=== PATIENT | male | born 1995 | race Caucasian/White ===

== ENCOUNTER 2021-03-30 19:30 | Emergency (ER) | payer MEDICAID, SELFPAY ==
[2021-03-30 19:31] VITALS: BP 106/56; PULSE 53; RESP 15; TEMP 37.2; O2SAT 98; BMI 20.2
--- NOTE | 2021-03-30 19:50 | EX.ED.DYSGE1 ---
HPI History of Present Illness Chief Complaint: Itching Informant: patient and spouse/S.O. Narrative Narrative: 26-year-old male presents the emergency room with left hand swelling. Patient states he was stung by a insect on his distal middle finger. States he was attempted to turn this packet on and believes the insect was up underneath the siding. He states shortly thereafter his hand has swelled. He took 2 Benadryl and used some calamine lotion. He denies any systemic symptoms PFSH PFSH no medical history Home Medications No Known/Unobtainable [No Known Home Medications] 01/10/15 [History Last Taken Unknown] Allergy/AdvReac Type Severity Reaction Status Date / Time No Known Allergies Allergy Verified 03/30/21 19:35 no surgical history Social History (Updated 03/30/21 @ 19:[address] Jonathan Snell, DO) Smoking Status: Current every day smoker substance use type: does not use ROS ROS ED Constitutional Constitutional ED: Denies chills or weight loss Eyes Eyes: Denies change in vision or diplopia ENT ENT ED: Denies ear pain, rhinorrhea or sore throat Cardiovascular Cardiovascular: Denies chest pain, orthopnea, palpitations or racing heartbeat Respiratory/Chest Respiratory/Chest: Denies cough, dyspnea or orthopnea Gastrointestinal Gastrointestinal: Denies abdominal pain, diarrhea, nausea or vomiting Genitourinary Genitourinary ED: Denies dysuria, hematuria or urinary frequency Musculoskeletal Musculoskeletal: Denies arthralgias or myalgias Integumentary Reports other Details: See history of present illness ; Denies abscess or rash Neurologic Neurologic: Denies headache(s) or weakness Psychiatric Psychiatric: Denies anxiety, depression, suicidal ideation or suicidal thoughts Endocrine Endocrinology: Denies polydipsia, polyphagia or polyuria Allergic/Immunologic Allergic/Immunologic ED: Denies mouth swelling, tongue swelling or urticaria EXAM Physical Exam Const Vital Signs: 03/30/21 19:31 Temperature 98.9 F Temperature Source Temporal Pulse Rate 53 L Respiratory Rate 15 Blood Pressure 106/56 L Blood Pressure Mean 72 Pulse Ox 98 Oxygen Delivery Method Room Air Positive well nourished and well developed General Appearance ED: well developed HEENT Reports normocephalic, head/scalp atraumatic and moist mucous membranes Eyes PERRL and EOMs intact bilaterally Neck no lymphadenopathy, supple and no JVD Resp normal respiratory effort and clear to auscultation bilaterally Cardio regular rate, regular rhythm and no murmurs GI normal to inspection, nondistended, normoactive bowel sounds and non-tender Palpation: soft Back/Spine no CVA tenderness and normal ROM Extremity General Extremety ED: Negative for edema General Extremity: Negative for edema Neuro oriented x3 and CN's II-XII intact bilaterally Sensorium / Orientation: alert Motor Exam: strength 5/5 throughout Psych mental status grossly normal Mood & Affect: Negative for depressed or tearful Skin no wounds Skin Narrative: The left hand is swollen. There is mild erythema. MDM MDM MDM Narrative Medical decision making narrative: This appears to be a local reaction to hymenoptera envenomation. Patient will be given a dose of Kenalog. Recommend continued Benadryl. We will also give him a dose of Pepcid. Return if worsening or concerns Discharge Plan Triage Chief Complaint: Itching ED Provider: Jonathan Snell Dx/Rx/DC Orders Clinical Impression: Local reaction to bee sting Instructions: ED Insect Sting, Local Reaction Prescriptions: No Action No Known Home Medications RF: 0 Activity Restrictions/Additional Instructions: Benadryl 25 mg every 6 hours. Pepcid 20 mg twice a day until symptoms resolve Disposition Disposition: Home, Self Care
[2021-03-30] MEDS: Triamcinolone Acetonide 40 MG/ML Vial 80 MG IM (20:06)
[2021-03-30] MEDS: Famotidine 20 MG Tablet 40 MG PO (20:06)
== END 2021-03-30 20:17 | disposition home or self-care (01) ==
LOC: ED 19:59
PROVIDERS: Emergency Provider Emergency Medicine
DX: T63.441A Toxic effect of venom of bees, accidental (unintentional), initial encounter (principal); M79.89 Other specified soft tissue disorders; Y92.9 Unspecified place or not applicable; F17.200 Nicotine dependence, unspecified, uncomplicated
CPT/HCPCS: 96372; 99283